=== PATIENT | female | born 2000 | race Caucasian/White ===

== ENCOUNTER 2019-03-04 11:15 | Outpatient (CLI) | payer OTHER ==
[2019-03-04 11:52] LABS: ADD MAN DIFF? NO
[2019-03-04 11:56] LABS: WHITE BLOOD COUNT 10.8 10^3/ul (4.8-10.8)
[2019-03-04 11:56] LABS: BASOPHILS % 0.4 % (0.0-2.0); EOSINOPHILS # 0.2 10^3/ul (0.0-0.5); EOSINOPHILS % 1.6 % (0.0-7.0); HEMATOCRIT 40.1 % (37.0-47.0); HEMOGLOBIN 13.3 g/dl (12.0-16.0); LYMPHOCYTES # 1.4 10^3/ul (0.8-2.9); LYMPHOCYTES % 12.5 % (18.0-55.0); MEAN CORPUSCULAR HEMOGLOBIN 30.4 pg (29.0-33.0); MEAN CORPUSCULAR HGB CONC 33.2 g/dl (32.0-37.0); MEAN CORPUSCULAR VOLUME 91.8 fl (72.0-104.0); MEAN PLATELET VOLUME 11.8 fl (7.4-10.4); MONOCYTES % 9.2 % (0.0-13.0); NEUTROPHIL # 8.1 10^3/ul (1.6-7.5); NEUTROPHILS % 75.1 % (30.0-74.0); PLATELET COUNT 192 10^3/UL (140-415); RED BLOOD COUNT 4.37 10^6/ul (4.20-5.40); RED CELL DISTRIBUTION WIDTH 13.9 % (11.5-14.5)
[2019-03-04 12:16] LABS: INR 0.97
[2019-03-04 12:17] LABS: PARTIAL THROMBOPLASTIN TIME 32.2 Sec (23.0-35.0)
[2019-03-04 12:25] LABS: ALANINE AMINOTRANSFERASE 23 IU/L (13-69); ALBUMIN 3.6 g/dl (3.3-4.9); ALBUMIN/GLOBULIN RATIO 1.16; ALKALINE PHOSPHATASE 114 IU/L (42-121); ANION GAP 10 (5-13); ASPARTATE AMINO TRANSFERASE 27 IU/L (15-46); BILIRUBIN,INDIRECT 0.3 mg/dl (0-1.1); BILIRUBIN,TOTAL 0.3 mg/dl (0.2-1.3); BLOOD UREA NITROGEN 7 mg/dl (7-20); CALCIUM 9.2 mg/dl (8.4-10.2); CARBON DIOXIDE 21 mmol/L (21-31); CHLORIDE 104 mmol/L (97-110); CREATININE 0.56 mg/dl (0.44-1.00); Estimated GFR > 60 mL/min (>60); GLUCOSE 79 mg/dl (70-220); POTASSIUM 3.7 mmol/L (3.5-5.1); SODIUM 135 mmol/L (135-144); TOTAL PROTEIN 6.7 g/dl (6.1-8.1); URIC ACID 4.4 mg/dl (3.1-7.9)
[2019-03-04 13:17] LABS: ADD UMIC YES; UR ASCORBIC ACID NEGATIVE (NEGATIVE); UR BACTERIA FEW /HPF (NONE SEEN); UR BILIRUBIN (Dip) NEGATIVE (NEGATIVE); UR BLOOD (Dip) 1+ mg/dL (NEGATIVE); UR CLARITY SLIGHTLY CLOUDY (CLEAR); UR COLOR YELLOW (YELLOW); UR GLUCOSE (Dip) NEGATIVE (NEGATIVE); UR KETONES (Dip) NEGATIVE (NEGATIVE); UR LEUKOCYTE ESTERASE (Dip) 1+ Leu/ul (NEGATIVE); UR NITRITE (Dip) NEGATIVE (NEGATIVE); UR RBC 1 /HPF (0-5); UR SPECIFIC GRAVITY (Dip) 1.006 (1.003-1.030); UR SQUAMOUS EPITHELIAL CELL FEW /HPF (FEW); UR TOTAL PROTEIN (Dip) NEGATIVE (NEGATIVE); UR UROBILINOGEN (Dip) NEGATIVE (NEGATIVE); UR WBC 21 /HPF (0-5)
== END 2019-03-04 14:05 | disposition home or self-care (01) ==
LOC: OBT 11:15 → L-D 11:15 → OBT 14:05
DX: O13.3 Gestational [pregnancy-induced] hypertension without significant proteinuria, third trimester (principal); Z3A.36 36 weeks gestation of pregnancy
CPT/HCPCS: 76815; 76818; 80053; 81001; 84560; 85025; 85384; 85610; 85730

== ENCOUNTER 2019-03-06 10:56 | Outpatient (CLI) | payer OTHER ==
[2019-03-06 11:27] LABS: COLLECTION PERIOD 24 hrs
[2019-03-06 12:10] LABS: COLLECTION PERIOD 24 hrs; VOLUME 2350 ml/24hrs; VOLUME 2350 mls
[2019-03-06 12:11] LABS: CREATININE,URINE RANDOM 57.45 mg/dl (20-320)
[2019-03-06 12:16] LABS: 24HR URINE TOTAL PROTEIN 305.5 mg/24hrs (42.0-225.0)
[2019-03-06 12:40] LABS: CREATININE 0.56 mg/dl (0.44-1.00)
[2019-03-06 12:47] LABS: CREATININE CLEARANCE 167.4 mls/min (84.0-162.0); SCRET 0.56 mg/dl (0.44-1.00)
[2019-03-06 12:56] LABS: ADD MAN DIFF? NO
[2019-03-06 13:00] LABS: BASOPHILS % 0.4 % (0.0-2.0); EOSINOPHILS # 0.2 10^3/ul (0.0-0.5); EOSINOPHILS % 1.8 % (0.0-7.0); HEMATOCRIT 38.2 % (37.0-47.0); HEMOGLOBIN 12.7 g/dl (12.0-16.0); LYMPHOCYTES # 1.3 10^3/ul (0.8-2.9); LYMPHOCYTES % 14.2 % (18.0-55.0); MEAN CORPUSCULAR HEMOGLOBIN 30.5 pg (29.0-33.0); MEAN CORPUSCULAR HGB CONC 33.2 g/dl (32.0-37.0); MEAN CORPUSCULAR VOLUME 91.8 fl (72.0-104.0); MEAN PLATELET VOLUME 12.5 fl (7.4-10.4); MONOCYTE # 0.9 10^3/ul (0.3-0.9); MONOCYTES % 9.5 % (0.0-13.0); NEUTROPHIL # 6.8 10^3/ul (1.6-7.5); NEUTROPHILS % 72.6 % (30.0-74.0); PLATELET COUNT 166 10^3/UL (140-415); RED BLOOD COUNT 4.16 10^6/ul (4.20-5.40); RED CELL DISTRIBUTION WIDTH 13.8 % (11.5-14.5)
[2019-03-06 13:00] LABS: WHITE BLOOD COUNT 9.4 10^3/ul (4.8-10.8)
[2019-03-06 13:13] LABS: ALANINE AMINOTRANSFERASE 24 IU/L (13-69); ALBUMIN 3.1 g/dl (3.3-4.9); ALKALINE PHOSPHATASE 109 IU/L (42-121); ANION GAP 6 (5-13); ASPARTATE AMINO TRANSFERASE 26 IU/L (15-46); BILIRUBIN,INDIRECT 0.2 mg/dl (0-1.1); BILIRUBIN,TOTAL 0.2 mg/dl (0.2-1.3); BLOOD UREA NITROGEN 10 mg/dl (7-20); CALCIUM 8.9 mg/dl (8.4-10.2); CARBON DIOXIDE 20 mmol/L (21-31); CHLORIDE 107 mmol/L (97-110); CREATININE 0.55 mg/dl (0.44-1.00); Estimated GFR > 60 mL/min (>60); GLUCOSE 74 mg/dl (70-220); LACTATE DEHYDROGENASE 360 IU/L (313-618); POTASSIUM 4.1 mmol/L (3.5-5.1); SODIUM 133 mmol/L (135-144); TOTAL PROTEIN 5.9 g/dl (6.1-8.1); URIC ACID 4.4 mg/dl (3.1-7.9)
[2019-03-06 13:22] LABS: AMPHETAMINE/METHAMPHETAMINE Negative (NEGATIVE); BARBITURATES Negative (NEGATIVE); BENZODIAZEPINES Negative (NEGATIVE); CANNABINOIDS Negative (NEGATIVE); COCAINE Negative (NEGATIVE); OPIATES Negative (NEGATIVE)
[2019-03-06 13:30] LABS: CREATININE,URINE RANDOM 416.31 mg/dl (20-320); PROTEIN/CREAT RATIO 0.02 RATIO
[2019-03-06 14:25] LABS: ADD UMIC YES; UR ASCORBIC ACID NEGATIVE (NEGATIVE); UR BACTERIA FEW /HPF (NONE SEEN); UR BILIRUBIN (Dip) NEGATIVE (NEGATIVE); UR BLOOD (Dip) NEGATIVE (NEGATIVE); UR CLARITY CLOUDY (CLEAR); UR COLOR YELLOW (YELLOW); UR GLUCOSE (Dip) NEGATIVE (NEGATIVE); UR KETONES (Dip) NEGATIVE (NEGATIVE); UR LEUKOCYTE ESTERASE (Dip) 3+ Leu/ul (NEGATIVE); UR NITRITE (Dip) NEGATIVE (NEGATIVE); UR RBC 3 /HPF (0-5); UR SPECIFIC GRAVITY (Dip) 1.008 (1.003-1.030); UR SQUAMOUS EPITHELIAL CELL MODERATE /HPF (FEW); UR TOTAL PROTEIN (Dip) NEGATIVE (NEGATIVE); UR UROBILINOGEN (Dip) NEGATIVE (NEGATIVE); UR WBC 28 /HPF (0-5)
[2019-03-06 16:51] LABS: RUPTURE FETAL MEMBRANES NEGATIVE (NEGATIVE)
== END 2019-03-06 17:18 | disposition home or self-care (01) ==
LOC: OBT 10:56 → L-D 10:56 → OBT 17:18
DX: O62.9 Abnormality of forces of labor, unspecified (principal); Z3A.36 36 weeks gestation of pregnancy
CPT/HCPCS: 76818; 80053; 80307; 81001; 81003; 82565; 82570; 82575; 83615; 84112; 84156; 84560; 85025

== ENCOUNTER 2019-03-07 13:11 | Outpatient (CLI) | payer OTHER | END 2019-03-07 15:07 | disposition home or self-care (01) | LOC: OBT 13:11 → L-D 13:12 → OBT 15:07 | DX: O13.3 Gestational [pregnancy-induced] hypertension without significant proteinuria, third trimester (principal); Z3A.36 36 weeks gestation of pregnancy | CPT/HCPCS: 76818 ==

== ENCOUNTER 2019-03-08 10:07 | Inpatient (IN) | payer OTHER ==
[2019-03-08] MEDS ORDERED: METHYLERGONOVINE 0.2 MG INJ IM (10:30)
[2019-03-08] MEDS ORDERED: LIDOCAINE 1% (MPF) 30 ML INJ INJ (10:30)
[2019-03-08] MEDS ORDERED: MISOPROSTOL 200 MCG TAB PR (10:30)
[2019-03-08] MEDS ORDERED: BUTORPHANOL 2 MG INJ IV (10:30)
[2019-03-08] MEDS ORDERED: CARBOPROST 250 MCG INJ IM (10:30)
[2019-03-08] MEDS ORDERED: OXYTOCIN 30 UNITS/LR 500 ML IV (10:30)
[2019-03-08] MEDS: LACTATED RINGER'S 1,000 ML IV ×2 (10:39→19:32)
[2019-03-08] MEDS: MISOPROSTOL 50 MCG CAPSULE PO ×4 (10:56→23:14)
[2019-03-08] MEDS: AMPICILLIN 2 GM/NS (PMX) 100 ML IV (10:56)
[2019-03-08] MEDS: AMPICILLIN 1 GM/NS (PMX) 50 ML IV ×3 (15:08→23:14)
[2019-03-09] MEDS: AMPICILLIN 1 GM/NS (PMX) 50 ML IV ×6 (03:16→23:58)
[2019-03-09] MEDS: LACTATED RINGER'S 1,000 ML IV ×3 (04:29→22:21)
[2019-03-09] MEDS: MISOPROSTOL 50 MCG CAPSULE PO ×2 (04:30→08:34)
[2019-03-09] MEDS: OXYTOCIN 30 UNITS/LR 500 ML IV (17:07)
[2019-03-10] MEDS: LACTATED RINGER'S 1,000 ML IV ×3 (00:03→14:11)
[2019-03-10] MEDS ORDERED: FENTAnyl 2MCG/ML-ROPIV 0.2% 100 ML (00:29)
[2019-03-10] MEDS ORDERED: NALOXONE (0.4 MG/ML) INJ IV (01:00)
[2019-03-10] MEDS: AMPICILLIN 1 GM/NS (PMX) 50 ML IV ×4 (04:17→16:30)
[2019-03-10] MEDS: FENTAnyl 2MCG/ML-ROPIV 0.2% 100 ML BAG EPI ×2 (08:41→16:31)
[2019-03-10] MEDS ORDERED: ONDANSETRON 4 MG INJ (08:50)
[2019-03-10] MEDS: ONDANSETRON 4 MG INJ IV (08:59)
[2019-03-10] MEDS: OXYTOCIN 30 UNITS/LR 500 ML IV ×3 (10:09→18:25)
[2019-03-10] MEDS: IBUPROFEN 600 MG TAB PO ×2 (18:27→23:56)
[2019-03-10] MEDS ORDERED: DIBUCAINE 1% 30 GM OINT TOP (20:30)
[2019-03-10] MEDS ORDERED: HYDROCODONE/APAP (5/325) TAB PO ×2 (20:30)
[2019-03-10] MEDS ORDERED: CARBOPROST 250 MCG INJ IM (20:30)
[2019-03-10] MEDS ORDERED: MISOPROSTOL 200 MCG TAB PR (20:30)
[2019-03-10] MEDS ORDERED: METHYLERGONOVINE 0.2 MG INJ IM (20:30)
[2019-03-10] MEDS ORDERED: OXYTOCIN 30 UNITS/LR 500 ML IV (20:30)
[2019-03-10] MEDS ORDERED: ZOLPIDEM 5 MG TAB PO (20:30)
[2019-03-10] MEDS: ACETAMINOPHEN 500 MG TAB PO (20:44)
[2019-03-10] MEDS: KETOROLAC 30 MG INJ IV (20:44)
[2019-03-10] MEDS: MINERAL OIL LIGHT 10 ML VIAL TOP (20:44)
[2019-03-10] MEDS: SENNA/DOCUSATE NA (8.6MG/50MG) TAB PO (21:50)
[2019-03-10] MEDS: MAGNESIUM HYDROXIDE 30ML CUP PO (21:50)
[2019-03-10] MEDS: LACTATED RINGER'S 1,000 ML IV* (22:57)
[2019-03-10] MEDS: CEPHALEXIN 500 MG CAP PO (23:56)
[2019-03-10] MEDS: BENZOCAINE 20% 56 ML SPRAY TOP (23:56)
[2019-03-10] MEDS: LANOLIN HPA 1 PKT TOP (23:56)
[2019-03-10] MEDS: WITCH HAZEL/GLYCERIN PAD PR (23:57)
[2019-03-11] MEDS: LACTATED RINGER'S 1,000 ML IV* (04:11)
[2019-03-11] MEDS: IBUPROFEN 600 MG TAB PO ×4 (05:50→23:36)
[2019-03-11] MEDS: CEPHALEXIN 500 MG CAP PO ×4 (05:50→23:36)
[2019-03-11] MEDS: MAGNESIUM HYDROXIDE 30ML CUP PO ×2 (10:02→21:00)
[2019-03-11] MEDS: SENNA/DOCUSATE NA (8.6MG/50MG) TAB PO ×2 (10:02→21:00)
[2019-03-11] MEDS: LANOLIN HPA 1 PKT TOP (13:11)
[2019-03-12] MEDS: IBUPROFEN 600 MG TAB PO ×3 (05:35→17:48)
[2019-03-12] MEDS: CEPHALEXIN 500 MG CAP PO ×3 (05:35→17:48)
[2019-03-12] MEDS: SENNA/DOCUSATE NA (8.6MG/50MG) TAB PO (08:34)
[2019-03-12] MEDS: MAGNESIUM HYDROXIDE 30ML CUP PO (08:34)
[2019-03-12] MEDS: VARICELLA VACCINE LIVE/PF 1,350 UNIT/0.5 ML ML SC* (09:00)
[2019-03-12] MEDS: DIPHTH/TET/ACEL PERTUSS (ADULT) 0.5 ML VIAL IM* (09:00)
[2019-03-12] MEDS: MEASLES,MUMPS,RUBELLA VACCINE INJ SC* (11:05)
== END 2019-03-12 18:00 | disposition home or self-care (01) | DRG 807 ==
LOC: L-D 10:07 → MS1 03-10 19:52
PROC: 10E0XZZ Delivery of Products of Conception, External Approach (ICD-10-PCS; principal; 2019-03-10)
PROC: 0UQGXZZ Repair Vagina, External Approach (ICD-10-PCS; 2019-03-10)
PROC: 0UQKXZZ Repair Hymen, External Approach (ICD-10-PCS; 2019-03-10)
PROC: 3E033VJ Introduction of Other Hormone into Peripheral Vein, Percutaneous Approach (ICD-10-PCS; 2019-03-10)
DX: O14.04 Mild to moderate pre-eclampsia, complicating childbirth (principal); Z37.0 Single live birth; O70.0 First degree perineal laceration during delivery; Z3A.37 37 weeks gestation of pregnancy
CPT/HCPCS: 62322; 80053; 84560; 85025; 85384; 85610; 85730; 86592; 86850; 86900; 86901; 87340; 90715; 90716